=== PATIENT | female | born 1960 | race Caucasian/White ===

== ENCOUNTER 2016-11-14 02:43 | Emergency (ER) | payer MEDICARE, OTHER ==
[~2016-11-14] VITALS: Ht 157.5 cm; Wt 65.0 kg
[~2016-11-14 02:43] MED LIST: ATEN-51 PO; BENZ2TAB37 PO; BUPR150T6 PO; DIPH50TA5 PO; DIVA250T4 PO; GABA300C16 PO; LORA1TAB PO; METF-382 PO; OMEP20CA16 PO; QUET150T PO; QUET200T PO; SENN-53 PO; ZOC20 PO; ZOLP5TAB6 PO
[2016-11-14 02:50] VITALS: Ht 157.5 cm; Wt 65.0 kg
== END 2016-11-14 03:14 | disposition left against medical advice (07) ==
LOC: FTE 02:43
DX: Z53.21 Procedure and treatment not carried out due to patient leaving prior to being seen by health care provider (principal)

== ENCOUNTER 2018-03-23 16:27 | Observation (INO) | END 2018-03-25 14:59 | disposition home or self-care (01) ==

== ENCOUNTER 2018-04-14 18:04 | Emergency (ER) | END 2018-04-15 00:58 | disposition home or self-care (01) ==